=== PATIENT | male | born 1995 | race Caucasian/White ===

== ENCOUNTER 2017-10-16 19:53 | Emergency (ER) | payer OTHER ==
[2017-10-16] MEDS ORDERED: Proparacaine 0.5% Opth 15 ML BOT ONE (20:24)
[2017-10-16] MEDS ORDERED: Fluorescein Opthalmic Strip ONE (20:25)
[2017-10-16] MEDS ORDERED: Ciprofloxacin 0.3% Ophth Drops 2.5 ml Bottle R EYE SCH (21:00)
== END 2017-10-16 21:20 | disposition home or self-care (01) ==
LOC: ERS 19:53
DX: S05.01XA Injury of conjunctiva and corneal abrasion without foreign body, right eye, initial encounter (principal); F41.9 Anxiety disorder, unspecified; Z87.891 Personal history of nicotine dependence; X58.XXXA Exposure to other specified factors, initial encounter
CPT/HCPCS: 99283